=== PATIENT | female | born 1960 | race Hispanic/Latino ===

== ENCOUNTER 2021-01-31 11:10 | Emergency (ER) | payer BC, OTHER ==
--- NOTE | 2021-01-31 11:45 | Event Note ---
ED Screening Note Date of service: 01/31/21 Time: 11:44 ED Screening Note: Patient complains of sudden onset of dizziness, shortness of breath, and diaphoresis after receiving the Covid vaccine today History of diabetes and Sjogren's syndrome States EMS stated her POC glucose was 167 Patient states her symptoms have improved, however she states she still has some mild dizziness and feels flushed No chest pain or shortness of breath at current This initial assessment/diagnostic orders/clinical plan/treatment(s) is/are subject to change based on patients health status, clinical progression and re- assessment by fellow clinical providers in the ED. Further treatment and workup at subsequent clinical providers discretion. Patient/guardian urged not to elope from the ED as their condition may be serious if not clinically assessed and managed. Initial orders include: Labs EKG Chest x-ray
[2021-01-31] MEDS ORDERED: DICYCLOMINE 20 MG/2 ML INJ IM ONE (12:49)
--- NOTE | 2021-01-31 12:53 | Emergency Department Report ---
ED General Adult HPI - General Chief complaint: Syncope Stated complaint: FAINTED AFTER COVID VACCINE Time Seen by Provider: 01/31/21 11:43 Source: patient Mode of arrival: Wheelchair Limitations: No Limitations - History of Present Illness Initial comments: Is a pleasant 60-year-old female presents to the emergency department with chief complaint of lightheadedness, and a metallic taste in her mouth that started after she received her first COVID-19 vaccine. Patient reports immediately following the injection she felt warm all over, lightheaded and had a metallic taste in her throat. She reports the symptoms have now resolved. She states she did have a little bit of lightheadedness when she stood up but otherwise the other symptoms had resolved. She did report that she is having some lower abdominal cramping which is new. - Related Data Home Medications Medication Instructions Recorded Confirmed Last Taken Albuterol Sulfate [Ventolin HFA] 2 puff IH PRN PRN 05/05/15 05/17/15 05/17/15 07:30 Aspirin [Aspirin BABY CHEW TAB] 81 mg PO QDAY 05/05/15 05/05/15 04/23/15 AtorvaSTATin 10 mg PO HS 05/05/15 05/17/15 05/16/15 Levothyroxine [Synthroid] 100 mcg PO QAM 05/05/15 05/17/15 05/17/15 07:30 Lisinopril/Hydrochlorothiazide 1 tab PO DAILY 05/05/15 05/17/15 05/17/15 07:30 [Lisinopril-Hctz 10-12.5 mg Tab] Omeprazole 40 mg PO DAILY 05/05/15 05/17/15 05/17/15 07:30 metFORMIN XR [Glucophage XR] 500 mg PO DAILY 05/05/15 05/17/15 05/16/15 Amoxicillin/K Clav Tab [Augmentin 1 tab PO BID 05/15/15 05/17/15 05/16/15 23:55 875MG TAB] Fluticasone [Flonase] 1 spray NS QDAY 05/15/15 05/17/15 05/16/15 Previous Rx's Medication Instructions Recorded Last Taken Type Docusate Sodium [Colace CAP] 100 mg PO BID #60 capsule 05/18/15 Unknown Rx HYDROcodone/ACETAMINOPHEN [[place] 1 each PO Q4-6H #50 tablet 05/18/15 Unknown Rx 7.5-325 mg TAB] Ibuprofen [Motrin 800 MG tab] 800 mg PO Q8HR PRN #40 tablet 05/18/15 Unknown Rx Dicyclomine [Bentyl] 10 mg PO QID PRN #20 capsule 01/31/21 Unknown Rx Allergies Allergy/AdvReac Type Severity Reaction Status Date / Time No Known Allergies Allergy Verified 01/31/21 11:39 ED Review of Systems ROS: Stated complaint: FAINTED AFTER COVID VACCINE Other details as noted in HPI Comment: All other systems reviewed and negative Constitutional: denies: chills, fever Eyes: denies: eye pain, eye discharge, vision change ENT: denies: ear pain, throat pain Respiratory: denies: cough, shortness of breath, wheezing Cardiovascular: denies: chest pain, palpitations Endocrine: no symptoms reported Gastrointestinal: abdominal pain. denies: nausea, diarrhea Genitourinary: denies: urgency, dysuria, discharge Musculoskeletal: as per HPI. denies: back pain, joint swelling, arthralgia Skin: denies: rash, lesions Neurological: other (Lightheadedness). denies: headache, weakness, paresthesias Psychiatric: denies: anxiety, depression Hematological/Lymphatic: denies: easy bleeding, easy bruising ED Past Medical Hx - Past Medical History Hx Hypertension: Yes (Denies Chest pain. EKG 03/2015- NSR, no ectopy.) Hx Congestive Heart Failure: No Hx Diabetes: Yes Hx GERD: Yes Hx Arthritis: Yes (occas joint pain) Hx Asthma: No Hx COPD: Yes (Mild, only PRN inhaler use.) - Surgical History Past Surgical History?: Yes Additional Surgical History: PARTIAL HYSTO/ ELBOW/ROTATOR CUFF/ TONSILS/ BILATERAL KNEE SURGERY - Social History Smoking Status: Never Smoker Substance Use Type: Alcohol - Medications Home Medications: Home Medications Medication Instructions Recorded Confirmed Last Taken Type Albuterol Sulfate [Ventolin HFA] 2 puff IH PRN PRN 05/05/15 05/17/15 05/17/15 07:30 History Aspirin [Aspirin BABY CHEW TAB] 81 mg PO QDAY 05/05/15 05/05/15 04/23/15 History AtorvaSTATin 10 mg PO HS 05/05/15 05/17/15 05/16/15 History Levothyroxine [Synthroid] 100 mcg PO QAM 05/05/15 05/17/15 05/17/15 07:30 History Lisinopril/Hydrochlorothiazide 1 tab PO DAILY 05/05/15 05/17/15 05/17/15 07:30 History [Lisinopril-Hctz 10-12.5 mg Tab] Omeprazole 40 mg PO DAILY 05/05/15 05/17/15 05/17/15 07:30 History metFORMIN XR [Glucophage XR] 500 mg PO DAILY 05/05/15 05/17/15 05/16/15 History Amoxicillin/K Clav Tab [Augmentin 1 tab PO BID 05/15/15 05/17/15 05/16/15 23:55 History 875MG TAB] Fluticasone [Flonase] 1 spray NS QDAY 05/15/15 05/17/15 05/16/15 History Docusate Sodium [Colace CAP] 100 mg PO BID #60 capsule 05/18/15 Unknown Rx HYDROcodone/ACETAMINOPHEN [[place] 1 each PO Q4-6H #50 tablet 05/18/15 Unknown Rx 7.5-325 mg TAB] Ibuprofen [Motrin 800 MG tab] 800 mg PO Q8HR PRN #40 tablet 05/18/15 Unknown Rx Dicyclomine [Bentyl] 10 mg PO QID PRN #20 capsule 01/31/21 Unknown Rx ED Physical Exam - General Limitations: No Limitations General appearance: alert, in no apparent distress - Head Head exam: Present: atraumatic, normocephalic - Eye Eye exam: Present: normal appearance, PERRL, EOMI Pupils: Present: normal accommodation - ENT ENT exam: Present: normal exam, normal orophraynx, mucous membranes moist - Neck Neck exam: Present: normal inspection, full ROM. Absent: tenderness, meningismus - Respiratory Respiratory exam: Present: normal lung sounds bilaterally. Absent: respiratory distress, wheezes, rales, rhonchi, stridor - Cardiovascular Cardiovascular Exam: Present: regular rate, normal rhythm, normal heart sounds. Absent: systolic murmur, diastolic murmur, rubs, gallop - GI/Abdominal GI/Abdominal exam: Present: soft, tenderness (Mild lower abdominal tenderness, no rebound or guarding.), normal bowel sounds. Absent: distended, guarding, re bound, rigid - Extremities Exam Extremities exam: Present: normal inspection, full ROM, normal capillary refill. Absent: tenderness, calf tenderness (No posterior calf tenderness, no lower extremity edema.) - Back Exam Back exam: Present: normal inspection, full ROM. Absent: tenderness, CVA tenderness (R), CVA tenderness (L) - Neurological Exam Neurological exam: Present: alert, oriented X3, CN II-XII intact, normal gait, other (Normal [id number]-[id number] and plvi-ep-mhbv, negative Romberg, normal strength and sensation of the bilateral upper and lower extremities, no focal neurologic deficits.) - Psychiatric Psychiatric exam: Present: normal affect, normal mood - Skin Skin exam: Present: warm, dry, intact, normal color. Absent: rash ED Course Vital Signs 01/31/21 01/31/21 01/31/21 11:43 12:55 13:18 Temperature 98.0 F 98 F Pulse Rate 85 76 Pulse Rate [ 83 Lying] Pulse Rate [ 86 Sitting] Pulse Rate [ 88 Standing] Respiratory 20 16 Rate Blood Pressure 157/99 Blood Pressure 149/82 [Lying] Blood Pressure 151/85 [Sitting] Blood Pressure 148/89 [Standing] Blood Pressure 130/80 [left arm] O2 Sat by Pulse 96 100 Oximetry - Reevaluation(s) Reevaluation #1: 01/31/21 12:52 Patient nontoxic in no acute distress. Per the triage RNs note there was mention of syncope however the patient denied this stating she just felt near s yncopal. Her EKG was ordered and negative. Cardiac work-up and urine ordered. Patient was given a dose of Bentyl for abdominal cramping. Did not see any signs of anaphylaxis at this point. Patient is stable and in no distress. Reevaluation #2: 01/31/21 12:55 Orthostatic vital signs were negative for orthostasis Reevaluation #3: 01/31/21 15:24 Troponin x2 was negative. Heart score is a relatively low risk at this time. Patient had no chest pain, shortness of breath making my suspicion for ACS unlikely. Patient had no syncope and per the [place] syncope rules she is a low risk at this time. ED Medical Decision Making - Lab Data Result diagrams: 01/31/21 12:09 01/31/21 12:09 Lab Results 01/31/21 01/31/21 01/31/21 Range/Units 12:09 12:09 12:09 WBC 13.8 H (4.5-11.0) K/mm3 RBC 5.03 (3.65-5.03) M/mm3 Hgb 16.4 H (10.1-14.3) gm/dl Hct 49.0 H (30.3-42.9) % MCV 97 (79-97) fl MCH 33 H (28-32) pg MCHC 34 (30-34) % RDW 14.0 (13.2-15.2) % Plt Count 357 (140-440) K/mm3 Baso % (Auto) Dining Service Supervisor Sodium 138 (137-145) mmol/L Potassium 4.6 (3.6-5.0) mmol/L Chloride 101.9 (98-107) mmol/L Carbon Dioxide 24 (22-30) mmol/L Anion Gap 17 mmol/L BUN 11 (7-17) mg/dL Creatinine 1.1 (0.6-1.2) mg/dL Estimated GFR 51 ml/min BUN/Creatinine Ratio 10 % Glucose 120 H (65-100) mg/dL Calcium 9.6 (8.4-10.2) mg/dL Total Bilirubin 0.20 (0.1-1.2) mg/dL AST 19 (5-40) units/L ALT 34 (7-56) units/L Alkaline Phosphatase 58 (35-129) units/L Troponin T < 0.010 (0.00-0.029) ng/mL Total Protein 7.2 (6.3-8.2) g/dL Albumin 4.2 (3.9-5) g/dL Albumin/Globulin Ratio 1.4 % Urine Color (Yellow) Urine Turbidity (Clear) Urine pH (5.0-7.0) Ur Specific [place] (1.003-1.030) Urine Protein (Negative) mg/dL Urine Glucose (UA) (Negative) mg/dL Urine Ketones (Negative) mg/dL Urine Blood (Negative) Urine Nitrite (Negative) Urine Bilirubin (Negative) Urine Urobilinogen (<2.0) mg/dL Ur Leukocyte Esterase (Negative) Urine WBC (Auto) (0.0-6.0) /HPF Urine RBC (Auto) (0.0-6.0) /HPF U Epithel Cells (Auto) (0-13.0) /HPF 01/31/21 01/31/21 Range/Units 12:52 14:26 WBC (4.5-11.0) K/mm3 RBC (3.65-5.03) M/mm3 Hgb (10.1-14.3) gm/dl Hct (30.3-42.9) % MCV (79-97) fl MCH (28-32) pg MCHC (30-34) % RDW (13.2-15.2) % Plt Count (140-440) K/mm3 Baso % (Auto) Sodium (137-145) mmol/L Potassium (3.6-5.0) mmol/L Chloride (98-107) mmol/L Carbon Dioxide (22-30) mmol/L Anion Gap mmol/L BUN (7-17) mg/dL Creatinine (0.6-1.2) mg/dL Estimated GFR ml/min BUN/Creatinine Ratio % Glucose (65-100) mg/dL Calcium (8.4-10.2) mg/dL Total Bilirubin (0.1-1.2) mg/dL AST (5-40) units/L ALT (7-56) units/L Alkaline Phosphatase (35-129) units/L Troponin T < 0.010 (0.00-0.029) ng/mL Total Protein (6.3-8.2) g/dL Albumin (3.9-5) g/dL Albumin/Globulin Ratio % Urine Color Straw (Yellow) Urine Turbidity Clear (Clear) Urine pH 7.0 (5.0-7.0) Ur Specific [place] 1.005 (1.003-1.030) Urine Protein <15 mg/dl (Negative) mg/dL Urine Glucose (UA) Neg (Negative) mg/dL Urine Ketones Neg (Negative) mg/dL Urine Blood Neg (Negative) Urine Nitrite Neg (Negative) Urine Bilirubin Neg (Negative) Urine Urobilinogen < 2.0 (<2.0) mg/dL Ur Leukocyte Esterase Neg (Negative) Urine WBC (Auto) 1.0 (0.0-6.0) /HPF Urine RBC (Auto) 1.0 (0.0-6.0) /HPF U Epithel Cells (Auto) < 1.0 (0-13.0) /HPF - EKG Data Rate: normal - EKG Data When compared to previous EKG there are: no significant change Interpretation: no acute changes, other (Normal sinus rhythm with a ventricular rate of 81 bpm, no acute ST or T wave abnormalities, no STEMI, normal axis, normal intervals) - Radiology Data Radiology results: report reviewed, image reviewed Ordering Physician: YONY BORREGO Date of Service: 01/31/21 Procedure(s): XR chest 1V ap Accession Number(s): [id number] cc: YONY BORREGO Fluoro Time In Minutes: CHEST 1 VIEW INDICATION: dizziness. COMPARISON: None FINDINGS: Support devices: None. Heart: Within normal limits. Lungs/Pleura: No acute air space or interstitial disease. Additional findings: None. IMPRESSION: No acute findings. Signer Name: Rahat Vega Jr, MD Signed: 01/31/2021 1:22 PM Workstation Name: [id number] Transcribed By: TTR Dictated By: RAHAT VEGA JR, MD Electronically Authenticated By: RAHAT VEGA JR, MD Signed Date/Time: 01/31/21 1322 - Medical Decision Making Patient reports feeling much better. She was given Bentyl for her abdominal cramping and ate some food and felt much better. She is tolerating p.o. food and fluids. Symptoms had resolved. Suspect this is likely a vasovagal event secondary to the injection versus a mild adverse reaction from the vaccine. Patient will be discharged in stable condition home with a short course of Bentyl as needed and outpatient follow-up with her primary care doctor in 24 to 48 hours. Recommend she return to the emergency department immediately develops any change or worsening symptoms. She verbalized understanding the diagnosis, treatment plan and follow-up instructions and all of her questions were answered. - Differential Diagnosis Near-syncope, ACS, allergic reaction Critical care attestation.: If time is entered above; I have spent that time in minutes in the direct care of this critically ill patient, excluding procedure time. ED Disposition Clinical Impression: Near syncope Adverse reaction to vaccine Qualifiers: Encounter type: initial encounter Qualified Code(s): T50.Z95A - Adverse effect of other vaccines and biological substances, initial encounter Disposition: DC- TO HOME OR SELFCARE Is pt being admited?: No Condition: Stable Instructions: Near-Syncope, [id number] Prescriptions: Dicyclomine [Bentyl] 10 mg PO QID PRN #20 capsule PRN Reason: cramping Referrals: MEGHA BRAUN MD [Primary Care Provider] - 3-5 Days Time of Disposition: 15:26
[2021-01-31 13:07] LABS: Hemoglobin 16.4 gm/dl (10.1-14.3); Mean Corpuscular HGB Conc 34 % (30-34); Mean Corpuscular Volume 97 fl (79-97); Platelet Count 357 K/mm3 (140-440); Red Blood Count 5.03 M/mm3 (3.65-5.03)
[2021-01-31 13:15] LABS: Bilirubin,Urine NEG (Negative); Blood,Urine NEG (Negative); Color,Urine Straw (Yellow); Protein,Urine <15 mg/dL mg/dL (Negative); Urobilinogen,Urine < 2.0 mg/dL (<2.0)
--- NOTE | 2021-01-31 13:26 | XRay Report ---
CHEST 1 VIEW INDICATION: dizziness. COMPARISON: None FINDINGS: Support devices: None. Heart: Within normal limits. Lungs/Pleura: No acute air space or interstitial disease. Additional findings: None. IMPRESSION: No acute findings. Signer Name: Rahat Vance Jr, MD Signed: 01/31/2021 1:22 PM Workstation Name: [id number]
[2021-01-31 13:39] LABS: Albumin 4.2 g/dL (3.9-5); Calcium 9.6 mg/dL (8.4-10.2)
[2021-01-31 15:43] VITALS: BP 147/75
[2021-01-31 16:14] LABS: RBC Morphology Normal; Total Cells Counted 100
--- NOTE | 2021-02-01 11:19 | Electrocardiograph Report ---
[facility] Test Date: 2021-01-31 Test Time: 11:54:35 Pat Name: ABAD CRAIN Department: Room: Gender: F [employer] Technician: : 1960 Requested By: YONY BORREGO Order Number: [id number] Reading MD: Haroon Amezquita Measurements Intervals [place] Rate: 81 P: 32 CO: 143 QRS: 23 QRSD: 83 T: 40 QT: 374 QTc: 434 Interpretive Statements Sinus rhythm Low voltage, precordial leads No previous ECG available for comparison Electronically Signed On 02-01-2021 8:19:21 PDT by Haroon Amezquita
== END 2021-01-31 15:44 | disposition home or self-care (01) ==
LOC: ED 11:10
DX: R55 Syncope and collapse (principal); T50.Z95A Adverse effect of other vaccines and biological substances, initial encounter; I10 Essential (primary) hypertension; E11.9 Type 2 diabetes mellitus without complications; K21.9 Gastro-esophageal reflux disease without esophagitis; J44.9 Chronic obstructive pulmonary disease, unspecified; Z79.82 Long term (current) use of aspirin; Z79.899 Other long term (current) drug therapy; Z98.890 Other specified postprocedural states
CPT/HCPCS: 36415; 71045; 80053; 81001; 84484; 85007; 85025; 93005; 96372; 99284; J0500